=== PATIENT | female | born 1935 | race Caucasian/White ===

== ENCOUNTER 2018-05-07 11:28 | Outpatient (REF) | payer MEDICARE, SELFPAY ==
[2018-05-07 19:07] LABS: Mean Corpuscular Hemoglobin 29.3 pg (27.0-33.0); Mean Corpuscular Volume 101.2 fL (80-95); Mean Platelet Volume 10.3 fL (8.0-11.0); Platelet Count 73 x1000/uL (130-400); RBC 1.67 m/cumm (4.00-5.20); RBC Distribution Width 24.6 % (11.7-14.6); White Blood Cell Count 10.82 k/cumm (4.4-10.8)
[2018-05-07 19:08] LABS: Iron 66 ug/dL (50-175)
[2018-05-07 19:25] LABS: HCT 16.9 % (36.0-46.0); HGB 4.9 g/dL (12.0-15.5)
[2018-05-07 19:43] LABS: ALT 13 U/L (12-78); AST 11 U/L (15-37); Albumin 2.4 g/dL (3.4-5.0); Alkaline Phosphatase 38 U/L (46-116); Anion Gap 9.4 mmol/L (3-11); BUN 26 mg/dL (7-18); Bilirubin, Total 0.5 mg/dL (0.2-1.0); CO2 26.6 mmol/L (21.0-32.0); CREATININE 1.34 mg/dL (0.55-1.02); Calcium 9.3 mg/dL (8.5-10.1); Chloride 100 mmol/L (98-107); Estimated GFR 38.06 (mL/min/1.73m2); Ferritin 135 ng/mL (8-388); Glucose 92 mg/dL (70-100); Potassium 4.7 mmol/L (3.5-5.1); Sodium 136 mmol/L (136-145); TSH (W/Ref FT4) 6.91 uIU/mL (0.358-3.74); Total Protein 9.9 g/dL (6.4-8.2); Vitamin B12 697 pg/mL (193-986)
[2018-05-07 20:40] LABS: FREE T4 0.88 ng/dL (0.76-1.46)
[2018-05-10 07:24] LABS: Vitamin D 25 Total 46.9 ng/ml (30-100)
== END 2018-05-07 11:48 ==
LOC: NCHCN 11:28
PROVIDERS: PCP Nurse Practitioner Family; Visit Provider Nurse Practitioner Family
DX: D64.9 Anemia, unspecified (principal); R53.83 Other fatigue
CPT/HCPCS: 80053; 82306; 85027; 82607; 82728; 83540; 84439; 84443

== ENCOUNTER 2018-10-20 08:38 | Outpatient (CLI) | payer MEDICARE, SELFPAY ==
[2018-10-20 09:00] LABS: Absolute Basophil Count 0.03 k/cumm (0.0-0.2); Absolute Eosinophil Count 0.17 k/cumm (0.0-0.7); Absolute Lymphocyte Count 0.44 k/cumm (1.2-3.4); Absolute Monocyte Count 0.15 k/cumm (0.11-0.7); Absolute Neutrophil Count 1.04 k/cumm (1.2-6.7); Basophils % 1.6; Eosinophils % 9.3; HCT 32.1 % (36.0-46.0); HGB 10.6 g/dL (12.0-15.5); Mean Corpuscular Hemoglobin 34.4 pg (27.0-33.0); Mean Corpuscular Volume 104.2 fL (80-95); Mean Platelet Volume 8.8 fL (8.0-11.0); Monocytes % 8.2; Neutrophils % 56.9; Platelet Count 221 x1000/uL (130-400); RBC 3.08 m/cumm (4.00-5.20); RBC Distribution Width 14.2 % (11.7-14.6)
[2018-10-20 09:08] LABS: ALT 30 U/L (12-78); AST 14 U/L (15-37); Alkaline Phosphatase 56 U/L (46-116); Anion Gap 6.7 mmol/L (3-11); BUN 22 mg/dL (7-18); Bilirubin, Total 0.6 mg/dL (0.2-1.0); CO2 30.3 mmol/L (21.0-32.0); CREATININE 0.84 mg/dL (0.55-1.02); Calcium 8.8 mg/dL (8.5-10.1); Chloride 101 mmol/L (98-107); Glucose 93 mg/dL (70-100); LDH 147 U/L (81-234); Potassium 4.6 mmol/L (3.5-5.1); Sodium 138 mmol/L (136-145); Total Protein 8.1 g/dL (6.4-8.2)
[2018-10-20 09:38] LABS: White Blood Cell Count 1.83 k/cumm (4.4-10.8)
[2018-10-20 09:39] LABS: Diff Comment Diff Reviewed
[2018-10-20 09:40] LABS: RBC Morphology Normal
== END 2018-10-20 08:58 ==
PROVIDERS: PCP Nurse Practitioner Family; Visit Provider Internal Medicine Hematology & Oncology
DX: C88.0 Waldenstrom macroglobulinemia (principal)
CPT/HCPCS: 36415; 80053; 83615; 85025

== ENCOUNTER 2018-11-10 08:58 | Outpatient (CLI) | payer MEDICARE, SELFPAY ==
[2018-11-10 09:18] LABS: Absolute Basophil Count 0.06 k/cumm (0.0-0.2); Absolute Eosinophil Count 0.33 k/cumm (0.0-0.7); Absolute Lymphocyte Count 0.65 k/cumm (1.2-3.4); Absolute Monocyte Count 0.24 k/cumm (0.11-0.7); Basophils % 3.5; Eosinophils % 19.3; HCT 32.2 % (36.0-46.0); HGB 10.8 g/dL (12.0-15.5); Mean Corp. HGB Concentration 33.5 g/dL (32.0-36.0); Mean Corpuscular Hemoglobin 34.6 pg (27.0-33.0); Mean Corpuscular Volume 103.2 fL (80-95); Mean Platelet Volume 8.9 fL (8.0-11.0); Neutrophils % 25.2; Platelet Count 219 x1000/uL (130-400); RBC 3.12 m/cumm (4.00-5.20); RBC Distribution Width 14.2 % (11.7-14.6)
[2018-11-10 09:25] LABS: ALT 44 U/L (12-78); AST 19 U/L (15-37); Alkaline Phosphatase 48 U/L (46-116); Anion Gap 7.1 mmol/L (3-11); BUN 17 mg/dL (7-18); Bilirubin, Total 0.8 mg/dL (0.2-1.0); CO2 29.9 mmol/L (21.0-32.0); CREATININE 1.06 mg/dL (0.55-1.02); Calcium 8.9 mg/dL (8.5-10.1); Chloride 101 mmol/L (98-107); Estimated GFR 49.75 (mL/min/1.73m2); Glucose 86 mg/dL (70-100); LDH 142 U/L (81-234); Potassium 4.2 mmol/L (3.5-5.1); Sodium 138 mmol/L (136-145); Total Protein 7.9 g/dL (6.4-8.2)
[2018-11-10 09:34] LABS: White Blood Cell Count 1.71 k/cumm (4.4-10.8)
[2018-11-10 09:40] LABS: Absolute Neutrophil Count 0.43 k/cumm (1.2-6.7); RBC Morphology Normal
[2018-11-11 10:12] LABS: IgA 44 mg/dL (85-499); IgG 275 mg/dL (610-1616); IgM 3514 mg/dL (35-242)
== END 2018-11-10 09:18 ==
PROVIDERS: PCP Nurse Practitioner Family; Visit Provider Internal Medicine Hematology & Oncology
DX: C88.0 Waldenstrom macroglobulinemia (principal)
CPT/HCPCS: 36415; 80053; 82784; 83615; 85025

== ENCOUNTER 2018-12-01 09:16 | Outpatient (CLI) | payer MEDICARE, MEDICAID, SELFPAY ==
[2018-12-01 10:58] LABS: Absolute Basophil Count 0.05 k/cumm (0.0-0.2); Absolute Eosinophil Count 0.26 k/cumm (0.0-0.7); Absolute Lymphocyte Count 0.72 k/cumm (1.2-3.4); Absolute Monocyte Count 0.36 k/cumm (0.11-0.7); Basophils % 3.4; Eosinophils % 17.4; HCT 32.5 % (36.0-46.0); Lymphocytes % 48.3; Mean Corp. HGB Concentration 33.8 g/dL (32.0-36.0); Mean Corpuscular Hemoglobin 34.7 pg (27.0-33.0); Mean Corpuscular Volume 102.5 fL (80-95); Mean Platelet Volume 9.6 fL (8.0-11.0); Monocytes % 24.2; Neutrophils % 6.7; Platelet Count 237 x1000/uL (130-400); RBC 3.17 m/cumm (4.00-5.20)
[2018-12-01 11:05] LABS: ALT 23 U/L (12-78); AST 12 U/L (15-37); Albumin 3.2 g/dL (3.4-5.0); Alkaline Phosphatase 51 U/L (46-116); Anion Gap 9.7 mmol/L (3-11); BUN 15 mg/dL (7-18); Bilirubin, Total 0.5 mg/dL (0.2-1.0); CO2 28.3 mmol/L (21.0-32.0); CREATININE 0.81 mg/dL (0.55-1.02); Calcium 9.4 mg/dL (8.5-10.1); Chloride 100 mmol/L (98-107); Glucose 93 mg/dL (70-100); LDH 128 U/L (81-234); Potassium 4.5 mmol/L (3.5-5.1); Sodium 138 mmol/L (136-145); Total Protein 7.7 g/dL (6.4-8.2)
[2018-12-01 11:22] LABS: White Blood Cell Count 1.49 k/cumm (4.4-10.8)
[2018-12-01 11:23] LABS: Diff Comment Diff Reviewed; Macrocytosis 2+
--- NOTE | 2018-12-01 13:42 | DI.CT_ITS ---
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 Small retention cysts are noted in both maxillary antra and in the left ethmoid sinus. The frontal sinus is intact. There is considerable membrane thickening involving the left sphenoid air cell. The facial bones appear intact. There is considerable artifact generated by the patient's dentition. There is no definite soft tissue or bony mass. SUMMARY: There is evidence of inflammatory sinus disease. The study is limited by artifacts generated by the patient's dentition and if there is any further clinical question, then further assessment with a pantograph examination or bitewing images of the dental structures is recommended.
[2018-12-01] MEDS: Omnipaque 350 MG/ML 100 ML BTL IJ (14:11)
[2018-12-01] MEDS: Normal Saline Flush 10 ML SYR IVP (14:12)
[2018-12-02 08:36] LABS: IgA 44 mg/dL (85-499); IgG 271 mg/dL (610-1616); IgM 3250 mg/dL (35-242)
== END 2018-12-01 09:36 ==
PROVIDERS: PCP Nurse Practitioner Family; Visit Provider Internal Medicine Hematology & Oncology
DX: C88.0 Waldenstrom macroglobulinemia (principal); J32.8 Other chronic sinusitis
CPT/HCPCS: 36415; 80053; 82784; 70487; 83615; 85025; J3490

== ENCOUNTER 2021-05-06 13:01 | Outpatient (REF) | payer MEDICARE, SELFPAY ==
[2021-05-06 20:29] LABS: Anion Gap 6.5 mmol/L (3-11); BUN 24 mg/dL (7-18); CO2 30.5 mmol/L (21.0-32.0); Calcium 8.5 mg/dL (8.5-10.1); Chloride 101 mmol/L (98-107); Estimated GFR 52.95 (mL/min/1.73m2); Glucose 190 mg/dL (74-106); Potassium 4.2 mmol/L (3.5-5.1); Sodium 138 mmol/L (136-145)
== END 2021-05-06 13:02 | disposition home or self-care (01) ==
LOC: NCHCN 13:01
PROVIDERS: PCP Nurse Practitioner Family; Visit Provider Internal Medicine
DX: U07.1 COVID-19 (principal); R09.89 Other specified symptoms and signs involving the circulatory and respiratory systems
CPT/HCPCS: 80048

== ENCOUNTER 2024-12-07 20:09 | Outpatient (REF) | payer MEDICARE, MEDICAID, SELFPAY ==
[2024-12-07 20:18] LABS: HCT 32.2 % (36.0-46.0); MCH 30.9 pg (27.0-33.0); MCHC 34.2 % (32.0-36.0); MCV 90 fL (80-95); MPV 11.1 fL (8.0-11.0); Platelet Count 238 10^3/uL (130-400); RBC 3.56 10^6/uL (3.93-5.22); RDW 14.1 % (11.7-14.6); RDW-SD 46.6 fL; WBC 12.22 10^3/uL (4.4-10.8)
[2024-12-07 20:28] LABS: C-Reactive Protein 22.14 mg/dL (<or=0.5)
== END 2024-12-07 20:10 | disposition home or self-care (01) ==
LOC: NCHCN 20:09
PROVIDERS: PCP Nurse Practitioner Family; Visit Provider Internal Medicine
DX: J18.9 Pneumonia, unspecified organism (principal)
CPT/HCPCS: 85027; 86140